=== PATIENT | female | born 1935 | race Caucasian/White ===

== ENCOUNTER 2017-07-19 12:56 | Inpatient (IN) | payer MEDICARE, MEDICAID ==
--- NOTE | 2017-07-19 14:04 | ED Physician Chart ---
ED Chief Complaint/HPI - Patient Information Date Seen:: 07/19/17 Time Seen:: 13:50 Chief Complaint:: generalized weakness and increased confusion History of Present Illness:: Patient was sent from her [facility] facility for generalized weakness and increased confusion. No further history is available. Allergies:: Allergies Allergy/AdvReac Type Severity Reaction Status Date / Time No Known Allergies Allergy Verified 02/01/17 20:24 Historian:: EMS, Medical Records Review:: Transfer documents Reviewed ED Review of Systems - Review of Systems General/Constitutional: No fever, No chills, Weakness Skin: No skin lesions Head: No headache Eyes: No loss of vision ENT: No earache Neck: No neck pain, No swelling Cardio Vascular: No chest pain, No palpitations Pulmonary: No SOB GI: No nausea, No vomiting Musculoskeletal: No bone or joint pain Endocrine: No polyuria Psychiatric: Prior psych history Hematopoietic: No bruising, No lymphadenopathy Allergic/Immuno: No urticaria Neurological: No syncope, No focal symptoms, Weakness, Confusion ED Past Medical History - Past Medical History Past Medical History: Other (increased confusion) Family History: Other (unavailable) Social History: Care Facility Surgical History: other (unavailable) Medication: Reviewed Family Medical History - Family Member Mother History Unknown: Yes ED Physical Exam - Physical Examination Other Gen/Cons comments:: Chronically ill-appearing; patient moans but demonstrates no other verbal response Head: Atraumatic Eyes: Lids, conjuctiva normal, PERRL Other Skin comments:: Large areas of ecchymosis both forearms. ENMT: External ears, nose nl Other ENMT comments:: Edentulous with upper dentures Neck: No nuchal rigidity Respiratory: Nl effort/Exclusion, Clear to Auscultation, No Wheeze/Rhonchi/Rales Cardio Vascular: RRR GI: No tenderness/rebounding/guarding, No organomegaly, No hernia : No CVA tenderness Extremities: No edema Neuro/Psych: No focal deficits Misc: Normal back ED Labs/Radiology/EKG Results - Lab Results Results: Laboratory Results - last 24 hr 07/19/17 07/19/17 07/19/17 14:05 14:05 14:45 WBC 4.5 L D RBC 3.89 Hgb 10.9 L Hct 33.7 L MCV 86.7 MCH 28.1 MCHC Differential 32.4 RDW 14.0 Plt Count 285 MPV 7.4 Neutrophils % 47.0 Lymphocytes % 38.6 Monocytes % 7.7 Eosinophils % 6.1 H Basophils % 0.6 Sodium 138 Potassium 3.8 Chloride 107 Carbon Dioxide 24.6 Anion Gap 10.2 BUN 23 Creatinine 0.7 Est GFR ( Amer) TNP Est GFR (Non-Af Amer) TNP BUN/Creatinine Ratio 32.9 Glucose 102 Calcium 9.4 Magnesium 1.9 Urine Source [place] Urine Color YELLOW Urine Clarity CLOUDY H Urine pH 6.0 Ur Specific [place] <= 1.005 Urine Protein NEGATIVE Urine Glucose (UA) NEGATIVE Urine Ketones NEGATIVE Urine Blood NEGATIVE Urine Nitrate NEGATIVE Urine Bilirubin NEGATIVE Urine Urobilinogen 0.2 Ur Leukocyte Esterase NEGATIVE Urine RBC 0-1 Urine WBC 2-5 Ur Epithelial Cells FEW Urine Bacteria MANY - Radiology Results Results: Chest x-ray showed calcification of the aortic arch; no infiltrate; no cardiomegaly - EKG Interpretations Rate & Rhythm: ectopic atrial rhythm; rate 53 [place]: left axis deviation ED Septic Shock - . Is Septic Shock (SBP<90, OR Lactate>4 mmol\L) present?: No ED Reassessment (Disposition) - Reassessment Reassessment Condition:: Unchanged - Diagnosis Diagnosis:: altered mental status; anemia - Aftercare/Follow up Instructions Aftercare/Follow-Up Instructions:: Refer to Discharge Instructions - Patient Disposition Admitted to:: Med/Surg Spoke to:: Rome Armendariz Admitting Medical Physician:: Rome Armendariz Condition at Disposition:: Stable, Unchanged
[2017-07-19 14:11] LABS: % BASOPHILS 0.6 % (0.0-2.0); % EOSINOPHILS 6.1 % (0.0-5.0); % LYMPHOCYTES 38.6 % (20.0-50.0); % MONOCYTES 7.7 % (2.0-10.0); HEMATOCRIT 33.7 % (41.0-60); HEMOGLOBIN 10.9 gm/dL (12-16); MEAN CELL VOLUME 86.7 fl (81-100); MEAN CORPUSCULAR HEMOGLOBIN 28.1 pg (27.0-31.0); MEAN CORPUSCULAR HGB CONC 32.4 pg (28.0-36.0); MEAN PLATELET VOLUME 7.4 fl; NEUTROPHILE ABSOLUTE 2.2 Th/cmm (1.8-8.0); PLATELET COUNT 285 Th/cmm (150-400); RED BLOOD COUNT 3.89 Mil/cmm (3.80-5.20)
[2017-07-19 14:23] LABS: WHITE BLOOD COUNT 4.5 Th/cmm (4.8-10.8)
[2017-07-19 14:31] LABS: ANION GAP 10.2 (7.0-16.0); BUN - UREA NITROGEN 23 mg/dL (7-25); BUN/CREATININE RATIO 32.9; CALCIUM SERUM 9.4 mg/dL (8.6-10.3); CARBON DIOXIDE 24.6 mEq/L (21.0-31.0); CHLORIDE 107 mEq/L (98-107); CREATININE - SERUM 0.7 mg/dL (0.6-1.2); GLUCOSE 102 mg/dL (70-105); MAGNESIUM 1.9 mg/dL (1.9-2.7); POTASSIUM SERUM 3.8 mEq/L (3.5-5.1); SODIUM SERUM 138 mEq/L (136-145)
[2017-07-19 15:02] LABS: URINE BILIRUBIN NEGATIVE (NEGATIVE); URINE BLOOD NEGATIVE (NEGATIVE); URINE GLUCOSE (UA) NEGATIVE (NEGATIVE); URINE KETONE NEGATIVE (NEGATIVE); URINE PROTEIN NEGATIVE (NEGATIVE); URINE UROBILINOGEN 0.2 E.U./dL (0.2 - 1.0)
[2017-07-19 15:09] LABS: URINE COLOR YELLOW
[2017-07-19 15:10] LABS: URINE BACTERIA MANY /hpf (NONE SEEN); URINE EPITHELIAL CELLS FEW /lpf (FEW); URINE RBC 0-1 /hpf (0-5)
--- NOTE | 2017-07-19 15:21 | Diagnostic Imaging Report ---
Head CT without intravenous contrast Indication: pain Comparison: None Technique: Axial images were obtained from the vertex to the skull base without IV contrast. Coronal reconstructions were made. Total DLP: 658, CTDI32.6 FINDINGS: Images of the brain obtained without contrast demonstrate no evidence of an acute hemorrhage. Diffuse atrophy is noted. The ventricles and basal cisterns are patent. No mass effect or midline shift. No evidence of a skull fracture or focal soft tissue swelling. The visualized paranasal sinuses are clear. IMPRESSION: No acute intracranial abnormality. Diffuse atrophy.
--- NOTE | 2017-07-19 15:27 | Diagnostic Imaging Report ---
CHEST X-RAY: AP view INDICATION: Altered level of consciousness COMPARISON: Chest x-ray 02/01/2017 FINDINGS: Chronic lung changes are seen with no focal consolidation or effusion. Heart size is normal. Atherosclerosis is noted. Degenerative changes of the spine are noted with scoliosis. Displaced chronic left distal clavicular fracture is noted. IMPRESSION: Chronic lung changes with no focal consolidation identified Atherosclerotic vascular disease. Displaced chronic left distal clavicular fracture.
[2017-07-19] MEDS ORDERED: Magnesium Hydroxide (MOM) 30 mL UDC PO PRN ×2 (19:39→20:58)
[2017-07-19] MEDS ORDERED: 0.9% NS w/20 mEq KCL 1,000 ML IV ONE (19:43)
--- NOTE | 2017-07-19 20:49 | History & Physical ---
ADMIT DATE: 07/19/2017 CHIEF COMPLAINT: Altered level of consciousness. HISTORY OF PRESENT ILLNESS: The patient is an 82-year-old female with long history of dementia, hypothyroidism and hypertension, presented to the Emergency Room with altered level of consciousness and dehydration, possible sepsis, admitted to medical floor, started on IV fluid. Psych evaluation ordered. The patient is a poor historian. PAST MEDICAL HISTORY: Significant for hypertension, hypothyroidism, anemia and dementia. PAST SURGICAL HISTORY: No recent surgery. ALLERGIES: None. MEDICATIONS: Follow admission reconciliation. SOCIAL HISTORY: No smoking, alcohol or drugs. FAMILY HISTORY: Noncontributory. REVIEW OF SYSTEMS: RENAL SYSTEM: No history of chronic renal disorder. CARDIOVASCULAR SYSTEM: No coronary artery disease. ENDOCRINE SYSTEM: No diabetes mellitus. She has history of hypothyroidism. GASTROINTESTINAL SYSTEM: No upper or lower gastrointestinal bleed. NEUROLOGICAL: She has dementia. PHYSICAL EXAMINATION: GENERAL: She is arousable, not coherent. VITAL SIGNS: Temperature 98.3, heart rate 62, blood pressure 136/54. HEENT: Normocephalic. Pupils reacting equal to light and accommodation. Sclerae clear. NECK: Supple. Negative for lymphadenopathy, JVD or bruit. CHEST: Bilateral normal. No rhonchi or wheezing. HEART: S1 and S2 normal. No murmur or gallop. ABDOMEN: Soft. Bowel sounds positive. EXTREMITIES: No edema. NEUROLOGIC: Arousable, not coherent. LABORATORY DATA: White blood cells 4.5, hemoglobin 10.9, hematocrit 33.7, and platelet is 285. Sodium 138, potassium 3.8, BUN is 23 and creatinine 0.7. ASSESSMENT: 1. Altered level of consciousness. 2. Hypertension. 3. Hypothyroidism. 4. Anemia. 5. Dementia. PLAN: The patient admitted to the hospital under Dr. Armendariz's service, started on IV fluids, mechanical soft diet, psych evaluation. The patient will resume her medication. The patient is a full code. CBC and CMP for tomorrow. JOB# [id number]
[2017-07-19] MEDS: D5-0.45NS w/20 mEq KCL 1,000 ML IV SCH (21:19)
[2017-07-20] MEDS: Levothyroxine 0.1 Mg Tab PO SCH (06:36)
[2017-07-20] MEDS: Levothyroxine 0.075 Mg Tab PO SCH (06:36)
[2017-07-20] MEDS ORDERED: Levothyroxine 0.075 Mg Tab PO SCH (07:30)
[2017-07-20] MEDS ORDERED: Levothyroxine 0.1 Mg Tab PO SCH (07:30)
[2017-07-20] MEDS: Multivitamin w/ Minerals Tab PO SCH (08:48)
[2017-07-20] MEDS: Ferrous Sulfate 325 MG TAB PO SCH (08:49)
[2017-07-20] MEDS: Calcium Carb/Vit D 500 mg/200 U Tab PO SCH (08:50)
[2017-07-20] MEDS ORDERED: [UNRECOGNIZED DRUG - OTHER] PO SCH (09:00)
[2017-07-20] MEDS ORDERED: Multivitamin w/ Minerals Tab PO SCH (09:00)
[2017-07-20] MEDS ORDERED: VITAMIN D3 PO SCH (09:00)
[2017-07-20] MEDS ORDERED: Ferrous Sulfate 325 MG TAB PO SCH (09:00)
[2017-07-20] MEDS ORDERED: CALCIUM CARBONATE PO SCH (09:00)
[2017-07-20] MEDS: D5-0.45NS w/20 mEq KCL 1,000 ML IV SCH (10:50)
[2017-07-20] MEDS ORDERED: VTE Chemical Prophylaxis Screen/Admission MC PRN (13:49)
--- NOTE | 2017-07-20 18:28 | Internal Medicine Prog Note ---
Internal Medicine Subjective - Subjective Patient seen and examined:: with staff (SHE HAD HER MEDICATION AND DIET.) Patient is:: non-verbal, in bed, confused Per staff patient has:: no adverse event Internal Medicine Objective - Results Result Diagrams: 07/19/17 14:05 07/19/17 14:05 Recent Labs: Laboratory Last Values WBC 4.5 Th/cmm (4.8-10.8) L D 07/19/17 14:05 RBC 3.89 Mil/cmm (3.80-5.20) 07/19/17 14:05 Hgb 10.9 gm/dL (12-16) L 07/19/17 14:05 Hct 33.7 % (41.0-60) L 07/19/17 14:05 MCV 86.7 fl (81-100) 07/19/17 14:05 MCH 28.1 pg (27.0-31.0) 07/19/17 14:05 MCHC Differential 32.4 pg (28.0-36.0) 07/19/17 14:05 RDW 14.0 % (11.5-20.0) 07/19/17 14:05 Plt Count 285 Th/cmm (150-400) 07/19/17 14:05 MPV 7.4 fl 07/19/17 14:05 Neutrophils % 47.0 % (40.0-80.0) 07/19/17 14:05 Lymphocytes % 38.6 % (20.0-50.0) 07/19/17 14:05 Monocytes % 7.7 % (2.0-10.0) 07/19/17 14:05 Eosinophils % 6.1 % (0.0-5.0) H 07/19/17 14:05 Basophils % 0.6 % (0.0-2.0) 07/19/17 14:05 Sodium 138 mEq/L (136-145) 07/19/17 14:05 Potassium 3.8 mEq/L (3.5-5.1) 07/19/17 14:05 Chloride 107 mEq/L (98-107) 07/19/17 14:05 Carbon Dioxide 24.6 mEq/L (21.0-31.0) 07/19/17 14:05 Anion Gap 10.2 (7.0-16.0) 07/19/17 14:05 BUN 23 mg/dL (7-25) 07/19/17 14:05 Creatinine 0.7 mg/dL (0.6-1.2) 07/19/17 14:05 Est GFR ( Amer) TNP 07/19/17 14:05 Est GFR (Non-Af Amer) TNP 07/19/17 14:05 BUN/Creatinine Ratio 32.9 07/19/17 14:05 Glucose 102 mg/dL (70-105) 07/19/17 14:05 Calcium 9.4 mg/dL (8.6-10.3) 07/19/17 14:05 Magnesium 1.9 mg/dL (1.9-2.7) 07/19/17 14:05 Urine Source [place] 07/19/17 14:45 Urine Color YELLOW 07/19/17 14:45 Urine Clarity CLOUDY (CLEAR) H 07/19/17 14:45 Urine pH 6.0 (4.6 - 8.0) 07/19/17 14:45 Ur Specific [place] <= 1.005 (1.005-1.030) 07/19/17 14:45 Urine Protein NEGATIVE mg/dL (NEGATIVE) 07/19/17 14:45 Urine Glucose (UA) NEGATIVE mg/dL (NEGATIVE) 07/19/17 14:45 Urine Ketones NEGATIVE mg/dL (NEGATIVE) 07/19/17 14:45 Urine Blood NEGATIVE (NEGATIVE) 07/19/17 14:45 Urine Nitrate NEGATIVE (NEGATIVE) 07/19/17 14:45 Urine Bilirubin NEGATIVE (NEGATIVE) 07/19/17 14:45 Urine Urobilinogen 0.2 E.U./dL (0.2 - 1.0) 07/19/17 14:45 Ur Leukocyte Esterase NEGATIVE (NEGATIVE) 07/19/17 14:45 Urine RBC 0-1 /hpf (0-5) 07/19/17 14:45 Urine WBC 2-5 /hpf (0-5) 07/19/17 14:45 Ur Epithelial Cells FEW /lpf (FEW) 07/19/17 14:45 Urine Bacteria MANY /hpf (NONE SEEN) 07/19/17 14:45 - Physical Exam Vitals and I&O: Vital Signs Temp 98.6 F 07/20/17 16:00 Pulse 56 07/20/17 16:00 Resp 19 07/20/17 16:00 BP 124/61 07/20/17 16:00 Pulse Ox 96 07/20/17 16:00 Intake & Output 07/19/17 07/20/17 07/20/17 18:59 06:59 18:59 Intake Total 200 2360 Output Total 750 Balance 200 1610 Weight (lbs) 100.244 kg 100.244 kg Intake: Intake, IV Amount 1000 D5-0.45NS w/20 mEq KCL 1, 1000 000 ml @ 75 mls/hr IV . [id number] [facility] Rx#:[id number] Oral 200 500 Tube Feeding 560 Other 300 Output: Urine 750 Other: # Voids 2 # Bowel Movements 0 0 Active Medications: Current Medications Acetaminophen (Tylenol) 650 mg PO Q4H PRN PRN Reason: Pain (Mild) Stop: 09/17/17 21:08 Aspirin (Ecotrin) 81 mg PO DAILY [facility] Stop: 09/18/17 08:59 Last Admin: 07/20/17 08:49 Dose: 81 mg Benazepril HCl (Lotensin) 20 mg PO DAILY [facility] Stop: 09/18/17 08:59 Last Admin: 07/20/17 08:48 Dose: 20 mg Calcium/Vitamin D (Oscal W/Vitamin D) 1 tab PO DAILY [facility] Stop: 09/18/17 08:59 Last Admin: 07/20/17 08:50 Dose: 1 tab Docusate Sodium (Colace) 100 mg PO BID [facility] Stop: 09/18/17 08:59 Last Admin: 07/20/17 17:58 Dose: 100 mg Donepezil HCl (Aricept) 10 mg PO HS [facility] Stop: 09/17/17 20:59 Last Admin: 07/19/17 21:20 Dose: 10 mg Ferrous Sulfate (Iron) 325 mg PO DAILY [facility] Stop: 09/18/17 08:59 Last Admin: 07/20/17 08:49 Dose: 325 mg Gabapentin (Neurontin) 100 mg PO BID [facility] Stop: 09/18/17 08:59 Last Admin: 07/20/17 17:58 Dose: 100 mg Heparin Sodium (Porcine) (Heparin) 5,000 units SUBQ Q12H [facility] Stop: 09/18/17 20:59 Potassium Chloride/Dextrose/Sod Cl (D5-0.45ns W/20 Meq Kcl) 1,000 mls @ 75 mls/ hr IV .[id number] [facility] Stop: 09/17/17 20:32 Last Admin: 07/20/17 10:50 Dose: 75 mls/hr Levothyroxine Sodium (Synthroid) 0.1 mg PO QDAC [facility] Stop: 09/18/17 07:29 Last Admin: 07/20/17 06:36 Dose: 0.1 mg Levothyroxine Sodium (Synthroid) 0.075 mg PO QDAC [facility] Stop: 09/18/17 07:29 Last Admin: 07/20/17 06:36 Dose: 0.075 mg Magnesium Hydroxide (Milk Of Magnesia) 30 ml PO DAILY PRN PRN Reason: Constipation Stop: 09/17/17 20:57 Miscellaneous (Vte Chemical Prophylaxis Screen/ Admission) 1 ea [facility] PRN PRN PRN Reason: PROTOCOL Stop: 09/18/17 13:48 General: weak, demented HEENT: NC/AT, PERRLA, EOMI, anicteric sclerae, throat clear Neck: Supple, No JVD, No thyromegaly, +2 carotid pulse wo bruit, No LAD Lungs: CTAB Cardiovascular: Normal S1, Normal S2, without murmur Abdomen: non-tender, non-distended Extremities: clear Neurological: no change - Procedures Procedures: Procedures Procedure Code Date I[place] [address] 08/03/16 IMMUNIZATION ADMIN 02660 08/03/16 INTRODUCTION OF SERUM/TOX/VACCINE INTO MUSCLE, PERC APPROACH [id number] 08/03/16 Internal Medicine Assmt/Plan - Assessment Assessment: 1.HTN. 2.HYPOTHYROIDISM. 3.ANEMIA. 4.DEMENTIA. - Plan Plan: CONTINUE ON CURRENT MEDICATION AND DIET.
[2017-07-21] MEDS: D5-0.45NS w/20 mEq KCL 1,000 ML IV SCH ×2 (05:06→17:51)
[2017-07-21] MEDS: Levothyroxine 0.075 Mg Tab PO SCH (07:09)
[2017-07-21] MEDS: Levothyroxine 0.1 Mg Tab PO SCH (07:09)
[2017-07-21] MEDS: Multivitamin w/ Minerals Tab PO SCH (08:43)
[2017-07-21] MEDS: Ferrous Sulfate 325 MG TAB PO SCH (08:46)
[2017-07-21] MEDS: Calcium Carb/Vit D 500 mg/200 U Tab PO SCH (08:46)
--- NOTE | 2017-07-21 17:53 | General Progress Note ---
Subjective - Review of Systems Service Date: 07/21/17 Subjective: awake and talking incomprehensible no distress bedside sitter reports agitation, pulling at lines, wanting to get out of bed Objective - Results Result Diagrams: 07/19/17 14:05 07/19/17 14:05 Recent Labs: Laboratory Last Values WBC 4.5 Th/cmm (4.8-10.8) L D 07/19/17 14:05 RBC 3.89 Mil/cmm (3.80-5.20) 07/19/17 14:05 Hgb 10.9 gm/dL (12-16) L 07/19/17 14:05 Hct 33.7 % (41.0-60) L 07/19/17 14:05 MCV 86.7 fl (81-100) 07/19/17 14:05 MCH 28.1 pg (27.0-31.0) 07/19/17 14:05 MCHC Differential 32.4 pg (28.0-36.0) 07/19/17 14:05 RDW 14.0 % (11.5-20.0) 07/19/17 14:05 Plt Count 285 Th/cmm (150-400) 07/19/17 14:05 MPV 7.4 fl 07/19/17 14:05 Neutrophils % 47.0 % (40.0-80.0) 07/19/17 14:05 Lymphocytes % 38.6 % (20.0-50.0) 07/19/17 14:05 Monocytes % 7.7 % (2.0-10.0) 07/19/17 14:05 Eosinophils % 6.1 % (0.0-5.0) H 07/19/17 14:05 Basophils % 0.6 % (0.0-2.0) 07/19/17 14:05 Sodium 138 mEq/L (136-145) 07/19/17 14:05 Potassium 3.8 mEq/L (3.5-5.1) 07/19/17 14:05 Chloride 107 mEq/L (98-107) 07/19/17 14:05 Carbon Dioxide 24.6 mEq/L (21.0-31.0) 07/19/17 14:05 Anion Gap 10.2 (7.0-16.0) 07/19/17 14:05 BUN 23 mg/dL (7-25) 07/19/17 14:05 Creatinine 0.7 mg/dL (0.6-1.2) 07/19/17 14:05 Est GFR ( Amer) TNP 07/19/17 14:05 Est GFR (Non-Af Amer) TNP 07/19/17 14:05 BUN/Creatinine Ratio 32.9 07/19/17 14:05 Glucose 102 mg/dL (70-105) 07/19/17 14:05 Calcium 9.4 mg/dL (8.6-10.3) 07/19/17 14:05 Magnesium 1.9 mg/dL (1.9-2.7) 07/19/17 14:05 Urine Source [place] 07/19/17 14:45 Urine Color YELLOW 07/19/17 14:45 Urine Clarity CLOUDY (CLEAR) H 07/19/17 14:45 Urine pH 6.0 (4.6 - 8.0) 07/19/17 14:45 Ur Specific [place] <= 1.005 (1.005-1.030) 07/19/17 14:45 Urine Protein NEGATIVE mg/dL (NEGATIVE) 07/19/17 14:45 Urine Glucose (UA) NEGATIVE mg/dL (NEGATIVE) 07/19/17 14:45 Urine Ketones NEGATIVE mg/dL (NEGATIVE) 07/19/17 14:45 Urine Blood NEGATIVE (NEGATIVE) 07/19/17 14:45 Urine Nitrate NEGATIVE (NEGATIVE) 07/19/17 14:45 Urine Bilirubin NEGATIVE (NEGATIVE) 07/19/17 14:45 Urine Urobilinogen 0.2 E.U./dL (0.2 - 1.0) 07/19/17 14:45 Ur Leukocyte Esterase NEGATIVE (NEGATIVE) 07/19/17 14:45 Urine RBC 0-1 /hpf (0-5) 07/19/17 14:45 Urine WBC 2-5 /hpf (0-5) 07/19/17 14:45 Ur Epithelial Cells FEW /lpf (FEW) 07/19/17 14:45 Urine Bacteria MANY /hpf (NONE SEEN) 07/19/17 14:45 - Physical Exam Vitals and I&O: Vital Signs Temp 97.4 F 07/21/17 12:00 Pulse 60 07/21/17 12:00 Resp 18 07/21/17 16:00 BP 126/59 07/21/17 12:00 Pulse Ox 98 07/21/17 04:00 Intake & Output 07/20/17 07/21/17 07/21/17 18:59 06:59 18:59 Intake Total 2360 1200 Output Total 750 Balance 1610 1200 Weight (lbs) 100.244 kg 100.244 kg Intake: Intake, IV Amount 1000 1000 D5-0.45NS w/20 mEq KCL 1, 1000 1000 000 ml @ 75 mls/hr IV . [id number] [facility] Rx#:[id number] Oral 500 200 Tube Feeding 560 Other 300 Output: Urine 750 Other: # Voids 3 # Bowel Movements 0 0 Active Medications: Current Medications Acetaminophen (Tylenol) 650 mg PO Q4H PRN PRN Reason: Pain (Mild) Stop: 09/17/17 21:08 Aspirin (Ecotrin) 81 mg PO DAILY [facility] Stop: 09/18/17 08:59 Last Admin: 07/21/17 08:43 Dose: 81 mg Benazepril HCl (Lotensin) 20 mg PO DAILY [facility] Stop: 09/18/17 08:59 Last Admin: 07/21/17 08:43 Dose: 20 mg Calcium/Vitamin D (Oscal W/Vitamin D) 1 tab PO DAILY [facility] Stop: 09/18/17 08:59 Last Admin: 07/21/17 08:46 Dose: 1 tab Docusate Sodium (Colace) 100 mg PO BID [facility] Stop: 09/18/17 08:59 Last Admin: 07/21/17 16:35 Dose: 100 mg Donepezil HCl (Aricept) 10 mg PO HS [facility] Stop: 09/17/17 20:59 Last Admin: 07/20/17 21:00 Dose: 10 mg Ferrous Sulfate (Iron) 325 mg PO DAILY [facility] Stop: 09/18/17 08:59 Last Admin: 07/21/17 08:46 Dose: 325 mg Gabapentin (Neurontin) 100 mg PO BID [facility] Stop: 09/18/17 08:59 Last Admin: 07/21/17 16:35 Dose: 100 mg Heparin Sodium (Porcine) (Heparin) 5,000 units SUBQ Q12H [facility] Stop: 09/18/17 20:59 Last Admin: 07/21/17 08:46 Dose: 5,000 units Potassium Chloride/Dextrose/Sod Cl (D5-0.45ns W/20 Meq Kcl) 1,000 mls @ 75 mls/ hr IV .[id number] [facility] Stop: 09/17/17 20:32 Last Admin: 07/21/17 05:06 Dose: 75 mls/hr Levothyroxine Sodium (Synthroid) 0.1 mg PO QDAC [facility] Stop: 09/18/17 07:29 Last Admin: 07/21/17 07:09 Dose: 0.1 mg Levothyroxine Sodium (Synthroid) 0.075 mg PO QDAC [facility] Stop: 09/18/17 07:29 Last Admin: 07/21/17 07:09 Dose: 0.075 mg Magnesium Hydroxide (Milk Of Magnesia) 30 ml PO DAILY PRN PRN Reason: Constipation Stop: 09/17/17 20:57 Miscellaneous (Vte Chemical Prophylaxis Screen/ Admission) 1 ea [facility] PRN PRN PRN Reason: PROTOCOL Stop: 09/18/17 13:48 Mupirocin (Bactroban Oint) 1 appl NS BID [facility] Stop: 07/26/17 09:01 Last Admin: 07/21/17 16:35 Dose: 1 appl General: No acute distress HEENT: Atraumatic, PERRLA, EOMI Neck: Supple, JVD Cardiovascular: Regular rate, Normal S1, Normal S2 Lungs: Clear to auscultation Abdomen: Bowel sounds, Soft - Procedures Procedures: Procedures Procedure Code Date I[place] [address] 08/03/16 IMMUNIZATION ADMIN 96564 08/03/16 INTRODUCTION OF SERUM/TOX/VACCINE INTO MUSCLE, PERC APPROACH [id number] 08/03/16 Assessment/Plan - Problem List Patient Problems: All Active Problems GENERALIZED WEAKNESS AND CONFUSION (Acute) - Assessment Assessment: 1.HTN. 2.HYPOTHYROIDISM. 3.ANEMIA. 4.DEMENTIA/DELIRIUM - Plan Plan: CONT CURRENT TREATMENT AWAITING GERIPSYCH BED
[2017-07-22] MEDS: D5-0.45NS w/20 mEq KCL 1,000 ML IV SCH (05:34)
[2017-07-22] MEDS: Levothyroxine 0.075 Mg Tab PO SCH (06:37)
[2017-07-22] MEDS: Levothyroxine 0.1 Mg Tab PO SCH (06:37)
[2017-07-22] MEDS: Multivitamin w/ Minerals Tab PO SCH (08:33)
[2017-07-22] MEDS: Calcium Carb/Vit D 500 mg/200 U Tab PO SCH (08:33)
[2017-07-22] MEDS: Ferrous Sulfate 325 MG TAB PO SCH (08:34)
--- NOTE | 2017-07-22 16:20 | General Progress Note ---
Subjective - Review of Systems Service Date: 07/22/17 Subjective: awake and talking incomprehensible no distress bedside sitter for wanting to get out of bed Objective - Results Result Diagrams: 07/19/17 14:05 07/19/17 14:05 Recent Labs: Laboratory Last Values WBC 4.5 Th/cmm (4.8-10.8) L D 07/19/17 14:05 RBC 3.89 Mil/cmm (3.80-5.20) 07/19/17 14:05 Hgb 10.9 gm/dL (12-16) L 07/19/17 14:05 Hct 33.7 % (41.0-60) L 07/19/17 14:05 MCV 86.7 fl (81-100) 07/19/17 14:05 MCH 28.1 pg (27.0-31.0) 07/19/17 14:05 MCHC Differential 32.4 pg (28.0-36.0) 07/19/17 14:05 RDW 14.0 % (11.5-20.0) 07/19/17 14:05 Plt Count 285 Th/cmm (150-400) 07/19/17 14:05 MPV 7.4 fl 07/19/17 14:05 Neutrophils % 47.0 % (40.0-80.0) 07/19/17 14:05 Lymphocytes % 38.6 % (20.0-50.0) 07/19/17 14:05 Monocytes % 7.7 % (2.0-10.0) 07/19/17 14:05 Eosinophils % 6.1 % (0.0-5.0) H 07/19/17 14:05 Basophils % 0.6 % (0.0-2.0) 07/19/17 14:05 Sodium 138 mEq/L (136-145) 07/19/17 14:05 Potassium 3.8 mEq/L (3.5-5.1) 07/19/17 14:05 Chloride 107 mEq/L (98-107) 07/19/17 14:05 Carbon Dioxide 24.6 mEq/L (21.0-31.0) 07/19/17 14:05 Anion Gap 10.2 (7.0-16.0) 07/19/17 14:05 BUN 23 mg/dL (7-25) 07/19/17 14:05 Creatinine 0.7 mg/dL (0.6-1.2) 07/19/17 14:05 Est GFR ( Amer) TNP 07/19/17 14:05 Est GFR (Non-Af Amer) TNP 07/19/17 14:05 BUN/Creatinine Ratio 32.9 07/19/17 14:05 Glucose 102 mg/dL (70-105) 07/19/17 14:05 Calcium 9.4 mg/dL (8.6-10.3) 07/19/17 14:05 Magnesium 1.9 mg/dL (1.9-2.7) 07/19/17 14:05 Urine Source [place] 07/19/17 14:45 Urine Color YELLOW 07/19/17 14:45 Urine Clarity CLOUDY (CLEAR) H 07/19/17 14:45 Urine pH 6.0 (4.6 - 8.0) 07/19/17 14:45 Ur Specific [place] <= 1.005 (1.005-1.030) 07/19/17 14:45 Urine Protein NEGATIVE mg/dL (NEGATIVE) 07/19/17 14:45 Urine Glucose (UA) NEGATIVE mg/dL (NEGATIVE) 07/19/17 14:45 Urine Ketones NEGATIVE mg/dL (NEGATIVE) 07/19/17 14:45 Urine Blood NEGATIVE (NEGATIVE) 07/19/17 14:45 Urine Nitrate NEGATIVE (NEGATIVE) 07/19/17 14:45 Urine Bilirubin NEGATIVE (NEGATIVE) 07/19/17 14:45 Urine Urobilinogen 0.2 E.U./dL (0.2 - 1.0) 07/19/17 14:45 Ur Leukocyte Esterase NEGATIVE (NEGATIVE) 07/19/17 14:45 Urine RBC 0-1 /hpf (0-5) 07/19/17 14:45 Urine WBC 2-5 /hpf (0-5) 07/19/17 14:45 Ur Epithelial Cells FEW /lpf (FEW) 07/19/17 14:45 Urine Bacteria MANY /hpf (NONE SEEN) 07/19/17 14:45 - Physical Exam Vitals and I&O: Vital Signs Temp 97.6 F 07/22/17 12:00 Pulse 67 07/22/17 12:00 Resp 16 07/22/17 12:00 BP 139/66 07/22/17 12:00 Pulse Ox 99 07/22/17 12:00 Intake & Output 07/21/17 07/22/17 07/22/17 18:59 06:59 18:59 Intake Total 956.25 938.75 Balance 956.25 938.75 Weight (lbs) 54.658 kg Intake: Intake, IV Amount 956.25 878.75 D5-0.45NS w/20 mEq KCL 1, 956.25 878.75 000 ml @ 75 mls/hr IV . [id number] [facility] Rx#:[id number] Oral 60 Other: # Voids 3 Active Medications: Current Medications Acetaminophen (Tylenol) 650 mg PO Q4H PRN PRN Reason: Pain (Mild) Stop: 09/17/17 21:08 Aspirin (Ecotrin) 81 mg PO DAILY [facility] Stop: 09/18/17 08:59 Last Admin: 07/22/17 08:33 Dose: 81 mg Benazepril HCl (Lotensin) 20 mg PO DAILY [facility] Stop: 09/18/17 08:59 Last Admin: 07/22/17 08:33 Dose: 20 mg Calcium/Vitamin D (Oscal W/Vitamin D) 1 tab PO DAILY [facility] Stop: 09/18/17 08:59 Last Admin: 07/22/17 08:33 Dose: 1 tab Docusate Sodium (Colace) 100 mg PO BID [facility] Stop: 09/18/17 08:59 Last Admin: 07/22/17 16:09 Dose: 100 mg Donepezil HCl (Aricept) 10 mg PO HS [facility] Stop: 09/17/17 20:59 Last Admin: 07/21/17 20:32 Dose: 10 mg Ferrous Sulfate (Iron) 325 mg PO DAILY [facility] Stop: 09/18/17 08:59 Last Admin: 07/22/17 08:34 Dose: 325 mg Gabapentin (Neurontin) 100 mg PO BID [facility] Stop: 09/18/17 08:59 Last Admin: 07/22/17 16:09 Dose: 100 mg Heparin Sodium (Porcine) (Heparin) 5,000 units SUBQ Q12H [facility] Stop: 09/18/17 20:59 Last Admin: 07/22/17 08:33 Dose: 5,000 units Potassium Chloride/Dextrose/Sod Cl (D5-0.45ns W/20 Meq Kcl) 1,000 mls @ 75 mls/ hr IV .[id number] [facility] Stop: 09/17/17 20:32 Last Admin: 07/22/17 05:34 Dose: 75 mls/hr Levothyroxine Sodium (Synthroid) 0.1 mg PO QDAC VICENTA Stop: 09/18/17 07:29 Last Admin: 07/22/17 06:37 Dose: 0.1 mg Levothyroxine Sodium (Synthroid) 0.075 mg PO QDAC [facility] Stop: 09/18/17 07:29 Last Admin: 07/22/17 06:37 Dose: 0.075 mg Magnesium Hydroxide (Milk Of Magnesia) 30 ml PO DAILY PRN PRN Reason: Constipation Stop: 09/17/17 20:57 Miscellaneous (Vte Chemical Prophylaxis Screen/ Admission) 1 ea MC PRN PRN PRN Reason: PROTOCOL Stop: 09/18/17 13:48 Mupirocin (Bactroban Oint) 1 appl NS BID [facility] Stop: 07/26/17 09:01 Last Admin: 07/22/17 08:32 Dose: 1 appl General: No acute distress HEENT: Atraumatic, PERRLA, EOMI Neck: Supple, JVD Cardiovascular: Regular rate, Normal S1, Normal S2 Lungs: Clear to auscultation Abdomen: Bowel sounds, Soft - Procedures Procedures: Procedures Procedure Code Date I[place] [id number] 08/03/16 IMMUNIZATION ADMIN [id number] 08/03/16 INTRODUCTION OF SERUM/TOX/VACCINE INTO MUSCLE, PERC APPROACH [id number] 08/03/16 Assessment/Plan - Problem List Patient Problems: All Active Problems GENERALIZED WEAKNESS AND CONFUSION (Acute) - Assessment Assessment: 1.HTN. 2.HYPOTHYROIDISM. 3.ANEMIA. 4.DEMENTIA/DELIRIUM - Plan Plan: CONT CURRENT TREATMENT AWAITING GERIPSYCH BED
[2017-07-22 17:38] LABS: URINE BILIRUBIN NEGATIVE (NEGATIVE); URINE BLOOD NEGATIVE (NEGATIVE); URINE GLUCOSE (UA) NEGATIVE (NEGATIVE); URINE KETONE NEGATIVE (NEGATIVE); URINE PROTEIN NEGATIVE (NEGATIVE); URINE UROBILINOGEN 0.2 E.U./dL (0.2 - 1.0)
[2017-07-22 17:45] LABS: URINE COLOR YELLOW
[2017-07-22 18:03] LABS: URINE AMORPHOUS SEDIMENT MODERATE URATES (NONE SEEN); URINE BACTERIA MANY /hpf (NONE SEEN); URINE EPITHELIAL CELLS FEW /lpf (FEW); URINE RBC NONE SEEN /hpf (0-5)
--- NOTE | 2017-07-23 03:18 | Consultation ---
DATE OF CONSULTATION: 07/22/2017 HISTORY OF PRESENT ILLNESS: An 82-year-old female with long history of dementia, hypothyroidism, hypertension, presenting altered, dehydrated with sepsis. The patient may have an overlying delirium as well. She has been with periods of unruly behaviors of pulling out lines, trying to get out of bed, currently on a sitter. PAST PSYCHIATRIC HISTORY: Dementia. PAST SURGICAL HISTORY: Noted. MEDICATIONS: Noted. SOCIAL HISTORY: No smoking, alcohol or drugs. Living in a nursing facility. MENTAL STATUS EXAMINATION: Stated age. Fair eye contact. Speech is rambling. Mood, "okay." AO to name only, confused, disoriented. No SI, no HI. No overt psychotic symptoms at this time. Poor insight, poor judgment. PROVISIONAL DIAGNOSES: Dementia; psychosis, unspecified. MEDICAL DIAGNOSES: Please see full H and P. RECOMMENDATIONS AND PLAN: We will continue 1:1, continue Aricept, consider adding Namenda. The patient may need p.r.n. medications. [facility]# [id number]
[2017-07-23] MEDS: D5-0.45NS w/20 mEq KCL 1,000 ML IV SCH ×2 (04:00→16:56)
[2017-07-23 06:22] LABS: HEMATOCRIT 31.6 % (41.0-60); HEMOGLOBIN 10.5 gm/dL (12-16); MEAN CELL VOLUME 86.7 fl (81-100); MEAN CORPUSCULAR HGB CONC 33.4 pg (28.0-36.0); NEUTROPHILE ABSOLUTE 2.4 Th/cmm (1.8-8.0); PLATELET COUNT 282 Th/cmm (150-400); RED BLOOD COUNT 3.64 Mil/cmm (3.80-5.20); RED CELL DISTRIBUTION WIDTH 14.3 % (11.5-20.0)
[2017-07-23 06:41] LABS: ANION GAP 5.8 (7.0-16.0); BUN - UREA NITROGEN 21 mg/dL (7-25); BUN/CREATININE RATIO 26.3; CALCIUM SERUM 9.1 mg/dL (8.6-10.3); CARBON DIOXIDE 26.7 mEq/L (21.0-31.0); CHLORIDE 107 mEq/L (98-107); CREATININE - SERUM 0.8 mg/dL (0.6-1.2); GLUCOSE 92 mg/dL (70-105); POTASSIUM SERUM 4.5 mEq/L (3.5-5.1); SODIUM SERUM 135 mEq/L (136-145)
[2017-07-23] MEDS: Levothyroxine 0.075 Mg Tab PO SCH (07:05)
[2017-07-23] MEDS: Levothyroxine 0.1 Mg Tab PO SCH (07:05)
[2017-07-23] MEDS: Ferrous Sulfate 325 MG TAB PO SCH (09:22)
[2017-07-23] MEDS: Calcium Carb/Vit D 500 mg/200 U Tab PO SCH (09:22)
[2017-07-23] MEDS: Multivitamin w/ Minerals Tab PO SCH (09:23)
--- NOTE | 2017-07-23 18:15 | Internal Medicine Prog Note ---
Internal Medicine Subjective - Subjective Service Date: 07/23/17 Patient seen and examined:: with staff Patient is:: non-verbal, in bed, confused Per staff patient has:: no adverse event Internal Medicine Objective - Results Result Diagrams: 07/23/17 05:30 07/23/17 05:30 Recent Labs: Laboratory Last Values WBC 5.0 Th/cmm (4.8-10.8) 07/23/17 05:30 RBC 3.64 Mil/cmm (3.80-5.20) L 07/23/17 05:30 Hgb 10.5 gm/dL (12-16) L 07/23/17 05:30 Hct 31.6 % (41.0-60) L 07/23/17 05:30 MCV 86.7 fl (81-100) 07/23/17 05:30 MCH 29.0 pg (27.0-31.0) 07/23/17 05:30 MCHC Differential 33.4 pg (28.0-36.0) 07/23/17 05:30 RDW 14.3 % (11.5-20.0) 07/23/17 05:30 Plt Count 282 Th/cmm (150-400) 07/23/17 05:30 MPV 8.0 fl 07/23/17 05:30 Neutrophils % 47.0 % (40.0-80.0) 07/19/17 14:05 Lymphocytes % 38.6 % (20.0-50.0) 07/19/17 14:05 Monocytes % 7.7 % (2.0-10.0) 07/19/17 14:05 Eosinophils % 6.1 % (0.0-5.0) H 07/19/17 14:05 Basophils % 0.6 % (0.0-2.0) 07/19/17 14:05 Sodium 135 mEq/L (136-145) L 07/23/17 05:30 Potassium 4.5 mEq/L (3.5-5.1) 07/23/17 05:30 Chloride 107 mEq/L (98-107) 07/23/17 05:30 Carbon Dioxide 26.7 mEq/L (21.0-31.0) 07/23/17 05:30 Anion Gap 5.8 (7.0-16.0) L 07/23/17 05:30 BUN 21 mg/dL (7-25) 07/23/17 05:30 Creatinine 0.8 mg/dL (0.6-1.2) 07/23/17 05:30 Est GFR ( Amer) TNP 07/23/17 05:30 Est GFR (Non-Af Amer) TNP 07/23/17 05:30 BUN/Creatinine Ratio 26.3 07/23/17 05:30 Glucose 92 mg/dL (70-105) 07/23/17 05:30 Calcium 9.1 mg/dL (8.6-10.3) 07/23/17 05:30 Magnesium 1.9 mg/dL (1.9-2.7) 07/19/17 14:05 Urine Source CATH 07/22/17 16:40 Urine Color YELLOW 07/22/17 16:40 Urine Clarity HAZY (CLEAR) 07/22/17 16:40 Urine pH 7.0 (4.6 - 8.0) 07/22/17 16:40 Ur Specific [place] 1.010 (1.005-1.030) 07/22/17 16:40 Urine Protein NEGATIVE mg/dL (NEGATIVE) 07/22/17 16:40 Urine Glucose (UA) NEGATIVE mg/dL (NEGATIVE) 07/22/17 16:40 Urine Ketones NEGATIVE mg/dL (NEGATIVE) 07/22/17 16:40 Urine Blood NEGATIVE (NEGATIVE) 07/22/17 16:40 Urine Nitrate POSITIVE (NEGATIVE) H 07/22/17 16:40 Urine Bilirubin NEGATIVE (NEGATIVE) 07/22/17 16:40 Urine Urobilinogen 0.2 E.U./dL (0.2 - 1.0) 07/22/17 16:40 Ur Leukocyte Esterase LARGE (NEGATIVE) H 07/22/17 16:40 Urine RBC NONE SEEN /hpf (0-5) 07/22/17 16:40 Urine WBC 6-10 /hpf (0-5) H 07/22/17 16:40 Ur Epithelial Cells FEW /lpf (FEW) 07/22/17 16:40 Amorphous Sediment MODERATE URATES (NONE SEEN) 07/22/17 16:40 Urine Bacteria MANY /hpf (NONE SEEN) 07/22/17 16:40 - Physical Exam Vitals and I&O: Vital Signs Temp 97.1 F 07/23/17 17:24 Pulse 80 07/23/17 17:24 Resp 17 07/23/17 17:24 BP 140/75 07/23/17 17:24 Pulse Ox 98 07/23/17 17:24 Intake & Output 07/22/17 07/23/17 07/23/17 18:59 06:59 18:59 Intake Total 2200 200 1040 Balance 2200 200 1040 Weight (lbs) 54.431 kg 55.656 kg Intake: Intake, IV Amount 1000 1040 D5-0.45NS w/20 mEq KCL 1, 1000 1040 000 ml @ 75 mls/hr IV . [id number] [facility] Rx#:[id number] Oral 1200 200 Other: # Voids 3 2 # Bowel Movements 0 1 Stool Characteristics Formed Active Medications: Current Medications Acetaminophen (Tylenol) 650 mg PO Q4H PRN PRN Reason: Pain (Mild) Stop: 09/17/17 21:08 Aspirin (Ecotrin) 81 mg PO DAILY [facility] Stop: 09/18/17 08:59 Last Admin: 07/23/17 09:21 Dose: 81 mg Benazepril HCl (Lotensin) 20 mg PO DAILY [facility] Stop: 09/18/17 08:59 Last Admin: 07/23/17 09:21 Dose: 20 mg Calcium/Vitamin D (Oscal W/Vitamin D) 1 tab PO DAILY [facility] Stop: 09/18/17 08:59 Last Admin: 07/23/17 09:22 Dose: 1 tab Docusate Sodium (Colace) 100 mg PO BID [facility] Stop: 09/18/17 08:59 Last Admin: 07/23/17 16:43 Dose: 100 mg Donepezil HCl (Aricept) 10 mg PO HS [facility] Stop: 09/17/17 20:59 Last Admin: 07/22/17 22:00 Dose: 10 mg Ferrous Sulfate (Iron) 325 mg PO DAILY [facility] Stop: 09/18/17 08:59 Last Admin: 07/23/17 09:22 Dose: 325 mg Gabapentin (Neurontin) 100 mg PO BID [facility] Stop: 09/18/17 08:59 Last Admin: 07/23/17 16:43 Dose: 100 mg Heparin Sodium (Porcine) (Heparin) 5,000 units SUBQ Q12H [facility] Stop: 09/18/17 20:59 Last Admin: 10/30/17 09:22 Dose: 5,000 units Potassium Chloride/Dextrose/Sod Cl (D5-0.45ns W/20 Meq Kcl) 1,000 mls @ 75 mls/ hr IV .[id number] [facility] Stop: 09/17/17 20:32 Last Infusion: 07/23/17 17:52 Dose: 75 mls/hr Levothyroxine Sodium (Synthroid) 0.1 mg PO QDAC [facility] Stop: 09/18/17 07:29 Last Admin: 07/23/17 07:05 Dose: 0.1 mg Levothyroxine Sodium (Synthroid) 0.075 mg PO QDAC [facility] Stop: 09/18/17 07:29 Last Admin: 07/23/17 07:05 Dose: 0.075 mg Magnesium Hydroxide (Milk Of Magnesia) 30 ml PO DAILY PRN PRN Reason: Constipation Stop: 09/17/17 20:57 Miscellaneous (Vte Chemical Prophylaxis Screen/ Admission) 1 ea [facility] PRN PRN PRN Reason: PROTOCOL Stop: 09/18/17 13:48 Mupirocin (Bactroban Oint) 1 appl NS BID [facility] Stop: 07/26/17 09:01 Last Admin: 07/23/17 16:43 Dose: 1 appl General: weak, demented HEENT: NC/AT, PERRLA, EOMI, anicteric sclerae, throat clear Neck: Supple, No JVD, No thyromegaly, +2 carotid pulse wo bruit, No LAD Lungs: CTAB Cardiovascular: Normal S1, Normal S2, without murmur Abdomen: non-tender, non-distended Extremities: clear Neurological: no change - Procedures Procedures: Procedures Procedure Code Date IIV [place] 15033 08/03/16 IMMUNIZATION ADMIN 70902 08/03/16 INTRODUCTION OF SERUM/TOX/VACCINE INTO MUSCLE, PERC APPROACH [id number] 08/03/16 Internal Medicine Assmt/Plan - Assessment Assessment: 1.HTN. 2.HYPOTHYROIDISM. 3.ANEMIA. 4.DEMENTIA. - Plan Plan: TRANSFER TO SNF BY S WITH ALL MEDICATION.
[2017-07-23] MEDS ORDERED: Sodium Chloride 0.9% 1,000 ML IV ONE (20:44)
[2017-07-23] MEDS ORDERED: D5-0.45NS 1,000 ML IV ONE (21:24)
[2017-07-23 21:32] LABS: % BASOPHILS 0.2 % (0.0-2.0); % EOSINOPHILS 4.4 % (0.0-5.0); % LYMPHOCYTES 27.1 % (20.0-50.0); % MONOCYTES 8.5 % (2.0-10.0); % NEUTROPHILS 59.8 % (40.0-80.0); HEMOGLOBIN 10.2 gm/dL (12-16); MEAN CELL VOLUME 87.1 fl (81-100); MEAN CORPUSCULAR HEMOGLOBIN 28.7 pg (27.0-31.0); MEAN CORPUSCULAR HGB CONC 32.9 pg (28.0-36.0); MEAN PLATELET VOLUME 7.6 fl; NEUTROPHILE ABSOLUTE 3.6 Th/cmm (1.8-8.0); PLATELET COUNT 274 Th/cmm (150-400); RED BLOOD COUNT 3.56 Mil/cmm (3.80-5.20)
[2017-07-23 21:45] LABS: ALB/GLOB RATIO 1.2 (1.0-1.8); ALKALINE PHOSPHATASE 63 U/L (34-104); ANION GAP 6.9 (7.0-16.0); BILIRUBIN,TOTAL 0.2 mg/dL (0.3-1.0); BUN - UREA NITROGEN 23 mg/dL (7-25); CALCIUM SERUM 8.9 mg/dL (8.6-10.3); CARBON DIOXIDE 27.4 mEq/L (21.0-31.0); CHLORIDE 108 mEq/L (98-107); GLUCOSE 82 mg/dL (70-105); POTASSIUM SERUM 4.3 mEq/L (3.5-5.1); SGOT 11 U/L (13-39); SGPT/ALT 8 U/L (7-52); SODIUM SERUM 138 mEq/L (136-145)
[2017-07-23 22:54] LABS: URINE BILIRUBIN NEGATIVE (NEGATIVE); URINE BLOOD MODERATE (NEGATIVE); URINE GLUCOSE (UA) NEGATIVE (NEGATIVE); URINE KETONE NEGATIVE (NEGATIVE); URINE PROTEIN NEGATIVE (NEGATIVE); URINE UROBILINOGEN 0.2 E.U./dL (0.2 - 1.0)
[2017-07-23 22:56] LABS: URINE COLOR YELLOW
[2017-07-23 23:02] LABS: URINE BACTERIA MANY /hpf (NONE SEEN); URINE EPITHELIAL CELLS MODERATE /lpf (FEW)
[2017-07-24] MEDS: Levothyroxine 0.1 Mg Tab PO SCH (07:03)
[2017-07-24] MEDS: Levothyroxine 0.075 Mg Tab PO SCH (07:04)
[2017-07-24] MEDS: Multivitamin w/ Minerals Tab PO SCH (09:12)
[2017-07-24] MEDS: Calcium Carb/Vit D 500 mg/200 U Tab PO SCH (09:12)
[2017-07-24] MEDS: Ferrous Sulfate 325 MG TAB PO SCH (09:13)
--- NOTE | 2017-07-24 20:18 | Internal Medicine Prog Note ---
Internal Medicine Subjective - Subjective Service Date: 07/24/17 Patient seen and examined:: with staff Patient is:: non-verbal, in bed, confused Per staff patient has:: no adverse event Internal Medicine Objective - Results Result Diagrams: 07/23/17 21:22 07/23/17 21: Recent Labs: Laboratory Last Values WBC 6.0 Th/cmm (4.8-10.8) 07/23/17 21: RBC 3.56 Mil/cmm (3.80-5.20) L 07/23/17 21:22 Hgb 10.2 gm/dL (12-16) L 07/23/17 21: Hct 31.0 % (41.0-60) L 07/23/17 21: MCV 87.1 fl (81-100) 07/23/17 21:22 MCH 28.7 pg (27.0-31.0) 07/23/17 21: MCHC Differential 32.9 pg (28.0-36.0) 07/23/17 21: RDW 14.0 % (11.5-20.0) 07/23/17 21:22 Plt Count 274 Th/cmm (150-400) 07/23/17 21: MPV 7.6 fl 07/23/17 21:22 Neutrophils % 59.8 % (40.0-80.0) 07/23/17 21: Lymphocytes % 27.1 % (20.0-50.0) 07/23/17 21: Monocytes % 8.5 % (2.0-10.0) 07/23/17 21: Eosinophils % 4.4 % (0.0-5.0) 07/23/17 21: Basophils % 0.2 % (0.0-2.0) 07/23/17 21: Sodium 138 mEq/L (136-145) 07/23/17 21:22 Potassium 4.3 mEq/L (3.5-5.1) 07/23/17 21: Chloride 108 mEq/L (98-107) H 07/23/17 21:22 Carbon Dioxide 27.4 mEq/L (21.0-31.0) 07/23/17 21: Anion Gap 6.9 (7.0-16.0) L 07/23/17 21:22 BUN 23 mg/dL (7-25) 07/23/17 21:22 Creatinine 1.0 mg/dL (0.6-1.2) 07/23/17 21:22 Est GFR ( Amer) TNP 07/23/17 21:22 Est GFR (Non-Af Amer) TNP 07/23/17 21:22 BUN/Creatinine Ratio 23.0 07/23/17 21:22 Glucose 82 mg/dL (70-105) 07/23/17 21:22 Whole Bld Lactic Acid 1.25 mmol/L (0.60-1.99) 07/23/17 21:22 Calcium 8.9 mg/dL (8.6-10.3) 07/23/17 21:22 Magnesium 1.9 mg/dL (1.9-2.7) 07/19/17 14:05 Total Bilirubin 0.2 mg/dL (0.3-1.0) L 07/23/17 21:22 AST 11 U/L (13-39) L 07/23/17 21:22 ALT 8 U/L (7-52) 07/23/17 21:22 Alkaline Phosphatase 63 U/L (34-104) 07/23/17 21:22 Total Protein 6.0 gm/dL (6.0-8.3) 07/23/17 21:22 Albumin 3.3 gm/dL (3.7-5.3) L 07/23/17 21:22 Globulin 2.7 gm/dL 07/23/17 21:22 Albumin/Globulin Ratio 1.2 (1.0-1.8) 07/23/17 21:22 Urine Source CATH 07/23/17 21:00 Urine Color YELLOW 07/23/17 21:00 Urine Clarity HAZY (CLEAR) 07/23/17 21:00 Urine pH 7.0 (4.6 - 8.0) 07/23/17 21:00 Ur Specific [place] 1.010 (1.005-1.030) 07/23/17 21:00 Urine Protein NEGATIVE mg/dL (NEGATIVE) 07/23/17 21:00 Urine Glucose (UA) NEGATIVE mg/dL (NEGATIVE) 07/23/17 21:00 Urine Ketones NEGATIVE mg/dL (NEGATIVE) 07/23/17 21:00 Urine Blood MODERATE (NEGATIVE) H 07/23/17 21:00 Urine Nitrate POSITIVE (NEGATIVE) H 07/23/17 21:00 Urine Bilirubin NEGATIVE (NEGATIVE) 07/23/17 21:00 Urine Urobilinogen 0.2 E.U./dL (0.2 - 1.0) 07/23/17 21:00 Ur Leukocyte Esterase LARGE (NEGATIVE) H 07/23/17 21:00 Urine RBC 2-5 /hpf (0-5) 07/23/17 21:00 Urine WBC 6-10 /hpf (0-5) H 07/23/17 21:00 Ur Epithelial Cells MODERATE /lpf (FEW) 07/23/17 21:00 Amorphous Sediment MODERATE URATES (NONE SEEN) 07/22/17 16:40 Urine Bacteria MANY /hpf (NONE SEEN) 07/23/17 21:00 - Physical Exam Vitals and I&O: Vital Signs Temp 97.8 F 07/24/17 19:00 Pulse 67 07/24/17 19:00 Resp 15 07/24/17 19:00 BP 103/53 07/24/17 19:00 Pulse Ox 100 07/24/17 19:00 Intake & Output 07/24/17 07/24/17 07/25/17 06:59 18:59 06:59 Intake Total 1280 Balance 1280 Weight (lbs) 52.191 kg Intake: Oral 1280 Other: # Voids 5 # Bowel Movements 3 Stool Characteristics Soft Brown Active Medications: Current Medications Acetaminophen (Tylenol) 650 mg PO Q4H PRN PRN Reason: Pain (Mild) Stop: 09/17/17 21:08 Last Admin: 07/24/17 15:34 Dose: 650 mg Aspirin (Ecotrin) 81 mg PO DAILY [facility] Stop: 09/18/17 08:59 Last Admin: 07/24/17 09:12 Dose: 81 mg Benazepril HCl (Lotensin) 20 mg PO DAILY [facility] Stop: 09/18/17 08:59 Last Admin: 07/24/17 09:12 Dose: 20 mg Calcium/Vitamin D (Oscal W/Vitamin D) 1 tab PO DAILY [facility] Stop: 09/18/17 08:59 Last Admin: 07/24/17 09:12 Dose: 1 tab Docusate Sodium (Colace) 100 mg PO BID [facility] Stop: 09/18/17 08:59 Last Admin: 07/24/17 16:26 Dose: Not Given Donepezil HCl (Aricept) 10 mg PO HS [facility] Stop: 09/17/17 20:59 Last Admin: 07/23/17 21:50 Dose: 10 mg Ferrous Sulfate (Iron) 325 mg PO DAILY [facility] Stop: 09/18/17 08:59 Last Admin: 07/24/17 09:13 Dose: 325 mg Gabapentin (Neurontin) 100 mg PO BID [facility] Stop: 09/18/17 08:59 Last Admin: 07/24/17 16:26 Dose: 100 mg Heparin Sodium (Porcine) (Heparin) 5,000 units SUBQ Q12H [facility] Stop: 09/18/17 20:59 Last Admin: 07/24/17 09:13 Dose: 5,000 units Levothyroxine Sodium (Synthroid) 0.1 mg PO QDAC [facility] Stop: 09/18/17 07:29 Last Admin: 07/24/17 07:03 Dose: 0.1 mg Levothyroxine Sodium (Synthroid) 0.075 mg PO QDAC [facility] Stop: 09/18/17 07:29 Last Admin: 07/24/17 07:04 Dose: 0.075 mg Magnesium Hydroxide (Milk Of Magnesia) 30 ml PO DAILY PRN PRN Reason: Constipation Stop: 09/17/17 20:57 Miscellaneous (Vte Chemical Prophylaxis Screen/ Admission) 1 ea [facility] PRN PRN PRN Reason: PROTOCOL Stop: 09/18/17 13:48 Mupirocin (Bactroban Oint) 1 appl NS BID [facility] Stop: 07/26/17 09:01 Last Admin: 07/24/17 16:26 Dose: 1 appl General: weak, demented HEENT: NC/AT, PERRLA, EOMI, anicteric sclerae, throat clear Neck: Supple, No JVD, No thyromegaly, +2 carotid pulse wo bruit, No LAD Lungs: CTAB Cardiovascular: Normal S1, Normal S2, without murmur Abdomen: non-tender, non-distended Extremities: clear Neurological: no change - Procedures Procedures: Procedures Procedure Code Date IIV ADJUVANT VACCINE IM 23038 08/03/16 IMMUNIZATION ADMIN 66755 08/03/16 INTRODUCTION OF SERUM/TOX/VACCINE INTO MUSCLE, PERC APPROACH [id number] 08/03/16 Internal Medicine Assmt/Plan - Assessment Assessment: 1.HYPOTENTION. 2.HYPOTHYROIDISM. 3.ANEMIA. 4.DEMENTIA. - Plan Plan: CONTINUE ON CURRENT MEDICATION AND DIET. Nutritional Asmnt/Malnutr-PDOC - Dietary Evaluation Malnutrition Findings (Please click <Entered> for more info): Nutritional Asmnt/Malnutrition Start: 07/24/17 10: 54 Text: Status: Complete Freq: Document 07/24/17 10:55 SHANNANG (Rec: 07/24/17 11:27 [id number]) Nutritional Asmnt/Malnutrition Patient General Information Nutritional Screening Moderate Risk Screening Diagnosis Dementia, Dehydration, possible sepsis Pertinent Medical Hx/Surgical Hx dementia, anemia, hypothyroidism, HTN Subjective Information Pt is confused, not able to communicate. Current Diet Order/ Nutrition Support Mechanical soft chopped Patient / S.O Not Indicated Pertinent Medications calcium, Vitamin D, colace, Iron, Synthroid, MOM Pertinent Labs 07/23 NA: 138, K: 4.3, Cl: 108 (H), BUN: 23, Cr: 1, Glu: 82- 102, Alb: 3.3 (L) Nutritional Hx/Data Height 1.63 m Height (Calculated Centimeters) 162.6 Current Weight (lbs) 55.792 kg Weight (Calculated Kilograms) 55.8 Weight (Calculated Grams) 12854.9 [place] Body Weight 120 % [place] Body Weight 98 Weight Status Approriate GI Symptoms GI Symptoms None Food Allergies No Usual diet at home not able to obtain Skin Integrity/Comment: edema: right and left lower extremity non-pitting 1+ Current %PO Good (75-100%) Estimated Nutritional Goals BEE in Kcals: Using Current wt Calories/Kcals/Kg 60 Kcals Calculated 7566-0195 Protein: Using Current wt Protein g/k-1.2 Protein Calculated 60-72 Fluid: ml 1800-2100ml (30-35ml/kg) Nutritional Problem 1. Problem Problem Inadequate fluid intake Etiology long hx of dementia, confusion Signs/Symptoms: dx of dehydration Malnutrition Alert Protein-Calorie Malnutrition N/A Is there a minimum of two criteria No selected? Query Text:Check all the applicable criteria. A minimum of two criteria are recommended for diagnosis of either severe or non-severe malnutrition. Malnutrition Related to Morbid Obesity Malnutrition related to morbid obesity No Intervention/Recommendation Comments 1. increase fluid intake to keep hydrated, provide additional 4oz juice or water with all meals. Expected Outcomes/Goals Expected Outcomes/Goals Goal: adequate fluid intake, show no signs and symptons of dehydration, PO intake to retian 75-100%, wt to remain stable, skin to retain intact.
[2017-07-25 05:04] LABS: % BASOPHILS 0.2 % (0.0-2.0); % EOSINOPHILS 6.4 % (0.0-5.0); % LYMPHOCYTES 30.6 % (20.0-50.0); % MONOCYTES 4.7 % (2.0-10.0); % NEUTROPHILS 58.1 % (40.0-80.0); HEMOGLOBIN 11.5 gm/dL (12-16); MEAN CELL VOLUME 86.3 fl (81-100); MEAN CORPUSCULAR HEMOGLOBIN 28.3 pg (27.0-31.0); MEAN CORPUSCULAR HGB CONC 32.8 pg (28.0-36.0); MEAN PLATELET VOLUME 7.7 fl; NEUTROPHILE ABSOLUTE 3.1 Th/cmm (1.8-8.0); PLATELET COUNT 298 Th/cmm (150-400); RED BLOOD COUNT 4.06 Mil/cmm (3.80-5.20); RED CELL DISTRIBUTION WIDTH 13.6 % (11.5-20.0); WHITE BLOOD COUNT 5.4 Th/cmm (4.8-10.8)
[2017-07-25 05:21] LABS: ALB/GLOB RATIO 1.1 (1.0-1.8); ALKALINE PHOSPHATASE 70 U/L (34-104); BILIRUBIN,TOTAL 0.4 mg/dL (0.3-1.0); BUN - UREA NITROGEN 25 mg/dL (7-25); BUN/CREATININE RATIO 35.7; CALCIUM SERUM 9.4 mg/dL (8.6-10.3); CARBON DIOXIDE 26.6 mEq/L (21.0-31.0); CHLORIDE 106 mEq/L (98-107); CREATININE - SERUM 0.7 mg/dL (0.6-1.2); GLUCOSE 90 mg/dL (70-105); POTASSIUM SERUM 4.6 mEq/L (3.5-5.1); SGOT 14 U/L (13-39); SGPT/ALT 9 U/L (7-52); SODIUM SERUM 137 mEq/L (136-145)
[2017-07-25] MEDS: Levothyroxine 0.075 Mg Tab PO SCH (08:30)
[2017-07-25] MEDS: Levothyroxine 0.1 Mg Tab PO SCH (08:30)
[2017-07-25] MEDS: Ferrous Sulfate 325 MG TAB PO SCH (09:25)
[2017-07-25] MEDS: Multivitamin w/ Minerals Tab PO SCH (09:27)
[2017-07-25] MEDS: Calcium Carb/Vit D 500 mg/200 U Tab PO SCH (09:27)
== END 2017-07-25 15:22 | disposition home or self-care (01) | DRG 871 ==
LOC: ER 12:56 → TELE 15:47 → ICU 07-23 21:36
PROVIDERS: ADMIT Family Medicine; ATTEND Family Medicine
DX: A41.9 Sepsis, unspecified organism (principal); G93.41 Metabolic encephalopathy; E86.0 Dehydration; D64.9 Anemia, unspecified; E44.1 Mild protein-calorie malnutrition; F03.90 Unspecified dementia, unspecified severity, without behavioral disturbance, psychotic disturbance, mood disturbance, and anxiety; R41.82 Altered mental status, unspecified; I10 Essential (primary) hypertension; E03.9 Hypothyroidism, unspecified; F29 Unspecified psychosis not due to a substance or known physiological condition
CPT/HCPCS: 36415-UA; 70450-TC; 71010-TC; 80048-TC; 80053-TC; 81001-TC; 83605; 83735-TC; 85025-TC; 90784; 93005; J1644; J3480; J7030; Z7610